=== PATIENT | female | born 1975 | race Caucasian/White ===

== ENCOUNTER 2020-06-21 10:06 | Outpatient (CLI) | payer BC, SELFPAY ==
--- NOTE | 2020-06-21 10:14 | MM_ITS ---
WS: [id number] BILATERAL DIGITAL SCREENING MAMMOGRAPHY WITH CAD CLINICAL INFORMATION: SCREENING HISTORY: Screening mammogram. No current complaints. COMPARISON: 2015 TECHNIQUE: Bilateral CC and MLO views. FINDINGS: History of breast reduction. The breasts are composed of heterogeneous fibroglandular density tissue, which can limit the detectio n of small underlying mass lesions. 13 mm asymmetric density upper outer left breast best seen on the MLO view. Recommend spot compression views and ultrasound if persistent. Right breast is unremarkable and unchanged. Stable intramammary lymph nodes both axillary tails. A fe w eggshell calcifications. MM/[place] [id number] IMPRESSION: BI-RADS: 0-Incomplete: Need additional imaging evaluation FOLLOW UP: Need Additional Imaging RECOMMEND LEFT DIAGNOSTIC MAMMOGRAPHY AND ULTRASOUND IF PERSISTENT
== END 2020-06-21 10:07 | disposition home or self-care (01) ==
LOC: RADSHAW 10:09
PROVIDERS: PCP Nurse Practitioner Family; Visit Provider Nurse Practitioner Family
DX: Z12.31 Encounter for screening mammogram for malignant neoplasm of breast (principal); N64.89 Other specified disorders of breast
CPT/HCPCS: 77067

== ENCOUNTER 2020-06-30 08:11 | Outpatient (CLI) | payer BC, SELFPAY ==
--- NOTE | 2020-06-30 08:16 | US_ITS ---
WS: [id number] LEFT DIGITAL MAMMOGRAPHY WITH CAD CLINICAL INFORMATION: ABNORMAL MAMMOGRAM COMPARISON: None. TECHNIQUE: views of the left breast were obtained. FINDINGS: The left breast is composed of heterogeneous fibroglandular density tissue, which can limit the detec tion of small underlying mass lesions. 13 mm asymmetric density upper outer left breast appears uncha nged. Ultrasound is pending. ULTRASOUND BREAST LEFT TECHNIQUE: Ultrasound left breast focused area of concern. CLINICAL INFORMATION: ABNORMAL MAMMOGRAM COMPARISON: None. FINDINGS: Ultrasound left breast 12 to 3:00 position. Echogenic dense parenchymal tissue in the upper-outer javi drant. No cystic or solid lesions. No lesions to target for biopsy. US/US breast LT limited* [id number] IMPRESSION: BI-RADS: 2-Benign FOLLOW UP: 1 Year Follow-up Recommend return to annual screening mammography.
== END 2020-06-30 08:12 | disposition home or self-care (01) ==
LOC: RADSHAW 08:14
PROVIDERS: PCP Nurse Practitioner Family; Visit Provider Nurse Practitioner Family
DX: R92.8 Other abnormal and inconclusive findings on diagnostic imaging of breast (principal)
CPT/HCPCS: 76642; 77065

== ENCOUNTER 2020-10-31 13:02 | Outpatient (RCR) | payer OTHER, SELFPAY | END 2020-11-23 23:59 | disposition home or self-care (01) | LOC: SOT 13:02 | PROVIDERS: PCP Nurse Practitioner Family; Visit Provider Orthopaedic Surgery Hand Surgery | DX: Z98.890 Other specified postprocedural states (principal); M65.311 Trigger thumb, right thumb | CPT/HCPCS: 97035; 97110; 97165 ==

== ENCOUNTER 2020-11-24 06:00 | Outpatient (RCR) | payer OTHER, SELFPAY | END 2020-12-23 23:59 | disposition home or self-care (01) | LOC: SOT 06:00 | PROVIDERS: PCP Nurse Practitioner Family; Visit Provider Orthopaedic Surgery Hand Surgery | DX: Z47.89 Encounter for other orthopedic aftercare (principal); Z98.890 Other specified postprocedural states; M65.311 Trigger thumb, right thumb | CPT/HCPCS: 97035; 97110; 97140; 97530 ==

== ENCOUNTER 2020-12-24 06:00 | Outpatient (RCR) | payer OTHER, SELFPAY | END 2021-01-23 23:59 | disposition home or self-care (01) | LOC: SOT 06:00 | PROVIDERS: PCP Nurse Practitioner Family; Visit Provider Orthopaedic Surgery Hand Surgery | DX: Z98.890 Other specified postprocedural states (principal); M65.311 Trigger thumb, right thumb | CPT/HCPCS: 97035; 97110; 97140; 97530 ==

== ENCOUNTER 2021-06-27 13:24 | Outpatient (CLI) | payer OTHER, SELFPAY ==
--- NOTE | 2021-06-27 13:29 | MR_ITS ---
WS: [id number] MRI CERVICAL SPINE NONCONTRAST TECHNIQUE: Sagittal T1, T2 and STIR imaging. Axial T2, gradient, and fiesta imaging. CLINICAL INFORMATION: NECK PAIN COMPARISON: None. FINDINGS: Straightening of the normal cervical lordosis. No high-grade central canal narrowing. Cord signal is normal. Degenerative edema in the right C5-C6 vertebral bodies. C2-C3: Mild disc bulging with osteophytic ridging. Spinal canal and foramen are patent. Mild facet ar thropathy. C3-C4: Left pericentral disc osteophyte protrusion with slight effacement of ventral thecal sac. Spin al canal is patent. Foramen are patent. C4-C5: Disc osteophyte protrusion eccentric to the left with slight contact of the left ventral cervi kristopher cord. Mild central canal stenosis. Mild left foraminal narrowing. Right foramen is patent. Mild f acet arthropathy. C5-C6: Mild disc osteophyte complex with endplate ridging. Mild central canal stenosis. Tiny shallow central protrusion. Moderate right and no significant left foraminal narrowing. Mild facet arthropath y. C6-C7: Disc osteophyte complex with endplate ridging. Mild to moderate right and no significant left foraminal narrowing. Spinal canal is patent. C7-T1: No significant disc bulging. Osteophytic ridging. Mild left bony foraminal narrowing. Right fo ramen is patent. Visualized brain stem structures: Normal. Prevertebral soft tissues: Normal. MR/MR cervical spin wo con* [id number] IMPRESSION: 1. Mild cervical curve with straightening of the normal cervical lordosis. 2. No high-grade central canal narrowing. Cord signal is normal. 3. Small disc osteophyte protrusions C4-C5 and C5-C6 with mild central canal s tenosis. 4. Mild/moderate right C5-C6 and right C6-C7 bony foraminal narrowing.
== END 2021-06-27 13:25 | disposition home or self-care (01) ==
LOC: RADSHAW 13:28
PROVIDERS: PCP Nurse Practitioner Family; Visit Provider Nurse Practitioner Family
DX: M54.2 Cervicalgia (principal); M25.78 Osteophyte, vertebrae; M48.02 Spinal stenosis, cervical region
CPT/HCPCS: 72141

== ENCOUNTER → 2021-07-06 14:07 | Outpatient (BNVA) | payer OTHER, SELFPAY | PROVIDERS: PCP Nurse Practitioner Family; Visit Provider Nurse Practitioner Women's Health | DX: R10.2 Pelvic and perineal pain (principal); R10.9 Unspecified abdominal pain | CPT/HCPCS: 84702; 85025; 87086 ==

== ENCOUNTER → 2021-07-10 12:59 | Outpatient (BNVA) | payer OTHER, SELFPAY | PROVIDERS: PCP Nurse Practitioner Family; Visit Provider Nurse Practitioner Women's Health | DX: R10.2 Pelvic and perineal pain (principal) | CPT/HCPCS: 76830 ==

== ENCOUNTER 2022-08-10 09:27 | Outpatient (CLI) | payer OTHER, SELFPAY ==
--- NOTE | 2022-08-10 09:34 | MM_ITS ---
WS: [id number] BILATERAL 3D TOMOSYNTHESIS DIGITAL DIAGNOSTIC MAMMOGRAPHY WITH CAD CLINICAL INFORMATION: BREAST PAIN HISTORY: LEFT breast pain. History of breast reduction. COMPARISON: 2019 TECHNIQUE: Bilateral CC, MLO, and ML views. FINDINGS: Scattered fibroglandular densities bilaterally. [place]ent centered calcification RIGHT breast. No suspic ious mammographic parenchymal abnormalities in the area of interest LEFT breast. Ultrasound described below. RIGHT breast appears unchanged ULTRASOUND BREAST LEFT TECHNIQUE: Ultrasound left breast focused area of concern. CLINICAL INFORMATION: BREAST PAIN COMPARISON: None. FINDINGS: Ultrasound LEFT breast 9:00 area of interest. Normal underlying parenchymal tissue. No suspicious cys tic or solid lesions. No lesions to target for biopsy. Recommend return to annual screening mammograp hy. MM/[place] [id number] IMPRESSION: BI-RADS: 2-Benign FOLLOW UP: 1 Year Follow-up Recommend return to annual screening mammography.
== END 2022-08-10 09:28 | disposition home or self-care (01) ==
PROVIDERS: PCP Nurse Practitioner Family; Visit Provider Nurse Practitioner Family
DX: N64.4 Mastodynia (principal)
CPT/HCPCS: 76642; 77062; G0279

== ENCOUNTER 2023-06-09 14:16 | Day surgery (SDC) | payer BC, SELFPAY ==
[2023-06-09] VITALS (10 sets, daily range): BP systolic 96–160; BP diastolic 62–104; PULSE 64–89; RESP 16–18; TEMP 36.1–36.8; O2SAT 93–100; BMI 30.2
--- NOTE | 2023-06-09 14:58 | CTR_ITS ---
PROCEDURE INFORMATION: Exam: CT Abdomen And Pelvis With Contrast Exam date and time: 06/09/2023 3:59 PM Age: 48 years old Clinical indication: Abdominal pain; Localized; Right lower quadrant (rlq); Prior surgery; Surgery date: 6+ months; Surgery type: Tubal; Additional info: Rlq pain TECHNIQUE: Imaging protocol: Computed tomography of the abdomen and pelvis with contrast. Radiation optimization: All CT scans at this facility use at least one of these dose optimization techniques: automated exposure control; mA and/or kV adjustment per patient size (includes targeted exams where dose is matched to clinical indication); or iterative reconstruction. Contrast material: OMNI 350; Contrast volume: 100 ml; Contrast route: INTRAVENOUS (IV); REPORTING DATA: Count of CT and Cardiac NM exams in prior 12 months: This patient has received 0 known CTs and 0 known cardiac nuclear medicine studies in the 12 months prior to the current study. COMPARISON: US transvaginal [id number] 07/10/2021 1:07 PM RADIATION DOSE METRICS: Total DLP (mGy-cm): 587.57 FINDINGS: Liver: Normal without focal lesions. Gallbladder and bile ducts: Normal. No calcified stones. No ductal dilation. Pancreas: Normal without ductal dilatation. Spleen: Normal. Adrenal glands: Normal. No mass. Kidneys and ureters: Subcentimeter right renal hypodensity too small to characterize statistically likely benign and requires no dedicated imaging follow-up. Otherwise unremarkable. Stomach and bowel: Unremarkable. No obstruction. No mucosal thickening. Appendix: The appendix is dilated with wall thickening and mucosal hyperenhancement, measuring up to 1.2 cm in diameter, and shows periappendiceal fat stranding. Intraperitoneal space: Minimal free pelvic fluid. No free air or well organized fluid collection. Vasculature: Unremarkable. No abdominal aortic aneurysm. Lymph nodes: No enlarged lymph nodes. Urinary bladder: Urinary bladder is unremarkable. Reproductive: Bilateral tubal occlusion devices. Suspect uterine fibroid. Otherwise unremarkable as visualized. Bones/joints: No acute fracture. Mild degenerative changes along the spine. Soft tissues: Unremarkable. CT/CT abdomen pelvis w con* [id number] IMPRESSION: Acute uncomplicated appendicitis.
[2023-06-09 15:16] LABS: Basophils % 0.2 %; Hematocrit 42.7 % (36-47); Lymphocytes # 1.7 10^3/uL (0.8-4.8); Mean Corpuscular Hemoglobin 29.5 pg (27-33); Mean Corpuscular Volume 89.3 fl (85-98); Mean Platelet Volume 9.6 fL (7.4-10.4); Monocytes # 0.6 10^3/uL (0.2-0.9); Neutrophils # 16.24 10^3/uL (1.8-7.7); Neutrophils % 87.4 %; Nucleated Red Blood Cells % 0 %; Platelet Count 337 10^3/cmm (157-399); Red Blood Count 4.78 10^6/uL (3.85-5.65); Red Cell Distribution Width 12.8 % (12.1-15.1); White Blood Count 18.58 10^3/uL (3.29-11.43)
[2023-06-09 15:36] LABS: Alanine Aminotransferase 14 U/L (0-33); Alkaline Phosphatase 101 U/L (35-105); Anion Gap 12.9 (5-19); Aspartate Amino Transferase 13 U/L (0-32); Blood Urea Nitrogen 13 mg/dL (6-20); Calcium 9.1 mg/dL (8.5-10.5); Carbon Dioxide 23 mmol/L (22-29); Chloride 100 mmol/L (98-107); Creatinine Clr Calc Pharmacy 80.5692; Globulin 3.3 g/dL (1.3-4.6); Glomerular Filtration Rate 76.2 mL/min (90-130); Glucose 113 mg/dL (65-115); Lipase 29 U/L (13-60); Osmolality Calculated 275 mOsm/kg (285-295); Potassium 3.9 mmol/L (3.5-5.1); Sodium 132 mmol/L (136-145); Total Bilirubin 0.6 mg/dL (0.15-1.2); Total Protein 7.3 g/dL (6.6-8.7)
[2023-06-09] MEDS: ondansetron 2 mg/ML SDV 2 mL 4 MG IVP (15:41)
[2023-06-09] MEDS: morphine 4 mg/mL SDV 1 mL 2 MG IVP (15:43)
--- NOTE | 2023-06-09 15:55 | W.ED.ABDPA2 ---
HPI - Abdominal Pain General: Chief Complaint: Abdominal Pain Stated Complaint: lower right abd pain Time Seen by Provider: 06/09/23 14:52 History of Present Illness: 48-year-old female presents emergency room with right lower quadrant abdominal pain since last night. Patient reveals increased pain and prior comes emergency room and described the pain as sharp sensation with severity of 7 out of 10. Patient with some nausea but no vomiting. No diarrhea, dysuria, hematuria urine frequency. No flank pain, no recent fall or injury. No vaginal bleeding or vaginal discharge Associated Symptoms: Reports nausea; Denies bloating, change in bowel habits, chills, constipation, dysuria, excessive flatus, fever(s), heartburn, hematemesis and vomiting Review of Systems General: Reports: 10 or more systems reviewed and unremarkable except in HPI and below Const: Denies: fever(s), chills, body aches, change in appetite, change in weight, fatigue or malaise Card: Denies: chest pain, palpitations, irregular heart rhythm, edema, swelling of feet/ankles or lightheadedness Resp: Denies: dyspnea, productive cough, non-productive cough or wheezing GI: Reports: abdominal pain and nausea; Denies: vomiting, hematemesis, dysphagia, heartburn, constipation, bloating, excessive flatus or change in bowel habits : Denies: flank pain, difficulty voiding, dysuria, urinary frequency, urinary urgency, urinary hesitancy, dribbling or nocturia Musc: Denies: neck pain, back pain, extremity pain, extremity swelling or joint pain Neuro: Denies: headache(s), numbness in extremities or weakness in extremities PFSH ED PFSH: Medical History Anxiety Hypertension Pure hypercholesterolemia, unspecified Surgical History H/O abdominoplasty (~09/2010) H/O breast augmentation (~09/2010) History of hysteroscopy (~12/2011) D&C, Endometrial ablation with ESSURE; suburethral sling placed at this time Family History Grandfather Cancer Maternal grandfather-colon cancer Grandmother Cancer Maternal great grandmother-breast cancer Other Hypertension Denies family history of Diabetes Hyperlipidemia Stroke Social History Smoking and tobacco/nicotine status: never used tobacco/nicotine Alcohol intake: current Alcohol intake frequency: holidays/special occasions only Substance/Drug Use: never Physical Exam Const: COMMON NORMALS: no acute distress, average body habitus, patient oriented x3, no limitations, healthy appearing, alert and well nourished HENMT: COMMON NORMALS: normocephalic, atraumatic, hearing grossly normal bilaterally, external ears normal, EAC's normal, TM's normal bilaterally, Normal external nose present, Normal nasal mucous membranes and turbinates present, moist oral mucous membranes, oropharynx normal, dentition normal and gingiva normal HEAD & SCALP: normocephalic and atraumatic NOSE: Normal external nose present and Normal nasal mucous membranes and turbinates present EXTERNAL EAR: Yes external ears normal EXTERNAL AUDITORY CANAL: EAC's normal TYMPANIC MEMBRANE: TM's normal bilaterally Neck/C-Spine: COMMON NORMALS: no JVD Chest: COMMONS NORMALS: normal inspection of the chest, normal palpation of entire chest wall, normal inspection of the breasts and normal palpation of the breasts Breast/axilla inspection: Yes normal inspection of the breasts BREAST/AXILLA PALPATION: Yes normal palpation of the breasts Resp: COMMON NORMALS: normal respiratory effort, No retractions, No use of accessory muscles, clear to auscultation bilaterally and percussion normal AUSCULTATION: clear to auscultation bilaterally PERCUSSION: percussion normal Cardio: COMMON NORMALS: no JVD, regular rate, regular rhythm, S1 normal heart sound present, S2 normal heart sound present, No gallops present (Cardio), No clicks present (Cardio), No murmurs present (Cardio), No rub (Cardio) and Peripheral pulses 2+ throughout RATE: regular rate RHYTHM: regular rhythm HEART SOUNDS: S1 normal heart sound present and S2 normal heart sound present PERIPHERAL PULSES: Peripheral pulses 2+ throughout GI: COMMON NORMALS: Normal to inspection, nondistended, normoactive bowel sounds present, Soft to palpation, No hepatosplenomegaly present, no masses and no bruits INSPECTION: Yes normal to inspection AUSCULTATION: Yes normoactive bowel sounds PALPATION: Yes Soft to palpation, Yes Tenderness to palpation present (GI) Details: RLQ and Yes No hepatosplenomegaly present : COMMON NORMALS: Yes no CVA tenderness BLADDER/KIDNEY EXAM: Yes no CVA tenderness Back/Pelvis: COMMON NORMALS: no CVA tenderness, thoracic and lumbar spine normal to inspection, no thoracic nor lumbar tenderness, thoraco-lumbar ROM normal and straight leg raise negative bilaterally Extremity: COMMON NORMALS: normal to inspection, full ROM, capillary refill normal, no joint enlargement, no clubbing, cyanosis or edema, no calf tenderness and no pedal edema Neuro: COMMON NORMALS: patient oriented x3 SENSORIUM/ORIENTATION: Yes alert Course Reevaluation(s): Reevaluation #1: I discussed patient with Dr. Che Vital Signs: Vital signs: Vital Signs Temperature 97 F L 06/09/23 18:50 Pulse Rate 64 06/09/23 19:30 Respiratory Rate 18 06/09/23 19:30 Blood Pressure 112/64 06/09/23 19:30 Pulse Oximetry 96 06/09/23 19:30 Oxygen Delivery Me thod Room Air 06/09/23 19:30 Oxygen Flow Rate 6 06/09/23 18:55 MDM - Abdominal Pain Medical Decision Making Patient made comfortable emergency room patient and extensive work-up to include CBC, CMP, CT scan. Patient was found to have acute appendicitis. Patient was given IV antibiotics. I discussed patient with Dr. De Anda. Patient admitted for further evaluation and treatment Differential Diagnosis Likely abdominal pain, acute appendicitis, calculus of kidney, constipation, diverticulitis, endometriosis, gastroenteritis, pancreatitis and small bowel obstruction Lab Data 06/09/23 15:10 06/09/23 15:10 Labs/Radiology: Radiology Impressions Abdomen/Pelvis CT 06/09/23 14:58 IMPRESSION: Acute uncomplicated appendicitis. ADDENDUM: 06/09/23 0903 THIS REPORT CONTAINS FINDINGS THAT MAY BE CRITICAL TO PATIENT CARE. The findings were verbally communicated via telephone conference with SUMIT MELGAR at 4:23 PM CDT on 06/09/2023. The findings were acknowledged and understood. Laboratory Results WBC 18.58 10^3/uL (3.29-11.43) H 06/09/23 15:10 RBC 4.78 10^6/uL (3.85-5.65) 06/09/23 15:10 Hgb 14.10 g/dL (11.27-16.99) 06/09/23 15:10 Hct 42.7 % (36-47) 06/09/23 15:10 MCV 89.3 fl (85-98) 06/09/23 15:10 MCH 29.5 pg (27-33) 06/09/23 15:10 MCHC 33.0 g/dL (30-55) 06/09/23 15:10 RDW 12.8 % (12.1-15.1) 06/09/23 15:10 Plt Count 337 10^3/cmm (157-399) 06/09/23 15:10 MPV 9.6 fL (7.4-10.4) 06/09/23 15:10 Neut % (Auto) 87.4 % 06/09/23 15:10 Lymph % (Auto) 9.0 % 06/09/23 15:10 [place] % (Auto) 3.0 % 06/09/23 15:10 Eos % (Auto) 0.0 % 06/09/23 15:10 Baso % (Auto) 0.2 % 06/09/23 15:10 Neut # (Auto) 16.24 10^3/uL (1.8-7.7) H 06/09/23 15:10 Lymph # (Auto) 1.7 10^3/uL (0.8-4.8) 06/09/23 15:10 [place] # (Auto) 0.6 10^3/uL (0.2-0.9) 06/09/23 15:10 Eos # (Auto) 0.0 10^3/uL (0.0-0.8) 06/09/23 15:10 Baso # (Auto) 0.0 10^3/uL (0.0-0.1) 06/09/23 15:10 Nucleated RBC % (auto) 0 % 06/09/23 15:10 Nucleated RBCs # 0.0 /100WBC 06/09/23 15:10 Sodium 132 mmol/L (136-145) L 06/09/23 15:10 Potassium 3.9 mmol/L (3.5-5.1) 06/09/23 15:10 Chloride 100 mmol/L (98-107) 06/09/23 15:10 Carbon Dioxide 23 mmol/L (22-29) 06/09/23 15:10 Anion Gap 12.9 (5-19) 06/09/23 15:10 BUN 13 mg/dL (6-20) 06/09/23 15:10 Creatinine 0.8 mg/dL (0.5-0.9) 06/09/23 15:10 GFR Calculation 76.2 mL/min (90-130) L 06/09/23 15:10 Glucose 113 mg/dL (65-115) 06/09/23 15:10 Calculated Osmolality 275 mOsm/kg (285-295) L 06/09/23 15:10 Calcium 9.1 mg/dL (8.5-10.5) 06/09/23 15:10 Total Bilirubin 0.6 mg/dL (0.15-1.2) 06/09/23 15:10 AST 13 U/L (0-32) 06/09/23 15:10 ALT 14 U/L (0-33) 06/09/23 15:10 Alkaline Phosphatase 101 U/L (35-105) 06/09/23 15:10 Total Protein 7.3 g/dL (6.6-8.7) 06/09/23 15:10 Albumin 4.0 g/dL (3.5-5.2) 06/09/23 15:10 Globulin 3.3 g/dL (1.3-4.6) 06/09/23 15:10 Lipase 29 U/L (13-60) 06/09/23 15:10 HCG, Qual Negative (Negative) 06/09/23 16:09 Urine Color Straw (Yellow) 06/09/23 16:09 Urine Appearance Clear (CLEAR) 06/09/23 16:09 Urine pH 6.5 (5-7) 06/09/23 16:09 Ur Specific [place] 1.000 (1.005-1.030) L 06/09/23 16:09 Urine Protein Neg (Negative) 06/09/23 16:09 Urine Glucose (UA) Norm (Normal) 06/09/23 16:09 Urine Ketones Negative (Negative) 06/09/23 16:09 Urine Blood Neg (Negative) 06/09/23 16:09 Urine Nitrate Negative (Negative) 06/09/23 16:09 Urine Bilirubin Neg (Negative) 06/09/23 16:09 Urine Urobilinogen Norm mg/dL (Negative) 06/09/23 16:09 Ur Leukocyte Esterase Negative (Negative) 06/09/23 16:09 XR interpretation done by ED provider, pending radiology final review Discharge Plan Discharge Patient Disposition: Admitted As Inpatient Clinical Impression: Abdominal pain, Appendicitis, Leukocytosis Condition: Stable Coding Level of Care Code ED Multifold Operator for Skyler Jamil
[2023-06-09] MEDS: iohexol 350 mg/mL 500 mL Btl (per mL) IV (16:04)
[2023-06-09 17:01] LABS: Add Urine Microscopic? NO; Charge for UA Resulting for Rev
[2023-06-09 17:05] LABS: Urine Appearance Clear (CLEAR); Urine Color Straw (Yellow)
[2023-06-09 17:06] LABS: Bilirubin Urine Neg (Negative); Blood Urine Neg (Negative); Glucose Urine UA Norm (Normal); Ketones Urine Negative (Negative); Leukocyte Esterase Urine Negative (Negative); Nitrate Urine Negative (Negative); Protein Urine Neg (Negative); Urobilinogen Urine Norm (Negative); pH Urine 6.5 (5-7)
[2023-06-09 17:08] LABS: HCG Qualitative Urine. Negative (Negative)
[2023-06-09] MEDS: piperacillin-tazobactam 4.5 GM in sodium chloride 0.9% (plus) 50 ML IV (17:24)
--- NOTE | 2023-06-09 17:24 | PM.HP ---
Providers/Chief Complaint Primary Care Provider: RYAN Herron Chief Complaint: lower right abd pain History of Present Illness Lina Landon is a 48 year old female who presented to the hospital with 1 day history of right lower quadrant abdominal pain. The pain is sharp and constant and radiates across her abdomen. Palpation makes the pain worse. Nothing seems to make the pain better. She does not endorse nausea but denies any emesis. Denies any diarrhea, constipation, hematochezia and/or melena. She has a history of abdominoplasty. CT abdomen pelvis shows acute uncomplicated appendicitis. Review of Systems General: Reports: 10 or more systems reviewed and unremarkable except in HPI and below Medications/Allergies Home Medications Medication Instructions Recorded Confirmed Last Taken Type amlodipine 10 mg tablet 10 mg PO DAILY 06/03/20 06/09/23 06/08/23 History hydrochlorothiazide 25 mg tablet 12.5 mg PO DAILY 06/03/20 06/09/23 06/08/23 History Allergies Allergy/AdvReac Type Severity Reaction Status Date / Time No Known Allergies Allergy Verified 07/14/21 08:18 PFSH Acute PFSH: Medical History Anxiety Hypertension Pure hypercholesterolemia, unspecified Surgical History H/O abdominoplasty (~09/2010) H/O breast augmentation (~09/2010) History of hysteroscopy (~12/2011) D&C, Endometrial ablation with ESSURE; suburethral sling placed at this time Family History Grandfather Cancer Maternal grandfather-colon cancer Grandmother Cancer Maternal great grandmother-breast cancer Other Hypertension Denies family history of Diabetes Hyperlipidemia Stroke Social History Smoking and tobacco/nicotine status: never used tobacco/nicotine Alcohol intake: current Alcohol intake frequency: holidays/special occasions only Substance/Drug Use: never Vitals/I&O/Wt Last Vital Signs Temp 98.2 F 06/09/23 14:24 Pulse 77 06/09/23 14:24 Resp 16 06/09/23 15:43 BP 126/81 06/09/23 14:24 Pulse Ox 98 06/09/23 14:24 O2 Del Method Room Air 06/09/23 14:24 Weight last 48 hrs Weight 165 lb Physical Exam Narrative: General : Patient is well developed , no acute distress, oriented x3 Head : Normal cephalic, a-traumatic. Ears : Pinnae and external canal are normal. Hearing is normal. Eyes : PERRLA, Sclera and injection are normal. No conjunctival discharge. Nose : Mucous membranes are without erythema. Throat : buccal mucosa is normal, gums are without significant recession or hypertrophy. Lungs : Equal chest rise bilaterally, no use of accessory muscles, trachea is midline. Cor : Rate and rhythm are normal. Abdomen : Soft, ND, tender to palpation right lower quadrant, positive Rovsing's Extremities : No edema, no cyanosis or clubbing, dorsalis pedis pulses are present bilaterally, non-tender to palpation of calves. Upper extremities are normal bilaterally. Back : non-tender to palpation, no CVA tenderness. Neuro : CN II - XII intact, Upper and lower extremities have equal and full strength Data 06/09/23 15:10 06/09/23 15:10 A&P Assessment and plan (1) Acute appendicitis: Plan Laparoscopic Appendectomy The risks and benefits of the procedure, including but not limited to, bleeding, infection, scar, numbness, pain, damage to surrounding structures, conversion to an open procedure, were explained to the patient. He is understanding of the risks and wishes to proceed. Attestations Medical Necessity Statement*: Patient may be discharged home after the procedure or admitted depending on the intraoperative findings Coding Level of Care Code 87220 Diagnoses Acute appendicitis K35.80
--- NOTE | 2023-06-09 17:38 | P.ANESASSM_ITS ---
Pre-Anesthetic Assessment Height/Weight: Height 1.57 m Weight 74.843 kg Temp Pulse Resp BP Pulse Ox O2 Del Method 98.2 F 77 16 126/81 98 Room Air 06/09/23 14:24 06/09/23 14:24 06/09/23 15:43 06/09/23 14:24 06/09/23 14:24 06/09/23 14:24 Operation Date: 06/09/23 17:20 Proposed Procedures p Laparoscopic Appendectomy(Right) - Karsten Che DO Familial anesthetic complications: none Was Beta Ramirez taken within 24 hours: N/A Was Clonidine taken within 24 hours: N/A Social No alcohol and No tobacco Exam alert, oriented x 3, clear to auscultation bilaterally and regular rate & rhythm Airway Submandibular: within normal limits Cervical ROM: within normal limits Mallampati: Class II Dentition: full CV/HEM Hypertension Neuropsych Anxiety Anesthetic Plan ASA status: 2E Anesthesia: General Medications/Allergies Home Medications Medication Instructions Recorded Confirmed Last Taken Type amlodipine 10 mg tablet 10 mg PO DAILY 06/03/20 06/09/23 06/08/23 History hydrochlorothiazide 25 mg tablet 12.5 mg PO DAILY 06/03/20 06/09/23 06/08/23 History Allergies Allergy/AdvReac Type Severity Reaction Status Date / Time No Known Allergies Allergy Verified 07/14/21 08:18 [facility] Anesthesia Medical History Anxiety Hypertension Pure hypercholesterolemia, unspecified Surgical History H/O abdominoplasty (~09/2010) H/O breast augmentation (~09/2010) History of hysteroscopy (~12/2011) D&C, Endometrial ablation with ESSURE; suburethral sling placed at this time Family History Grandfather Cancer Maternal grandfather-colon cancer Grandmother Cancer Maternal great grandmother-breast cancer Other Hypertension Denies family history of Diabetes Hyperlipidemia Stroke Social History Smoking and tobacco/nicotine status: never used tobacco/nicotine Alcohol intake: current Alcohol intake frequency: holidays/special occasions only Substance/Drug Use: never Data Anesthesia 06/09/23 15:10 06/09/23 15:10 Short CBC 06/09/23 Range/Units 15:10 WBC 18.58 H (3.29-11.43) 10^3/uL Hgb 14.10 (11.27-16.99) g/dL Hct 42.7 (36-47) % MCV 89.3 (85-98) fl Plt Count 337 (157-399) 10^3/cmm Neut % (Auto) 87.4 % Neut # (Auto) 16.24 H (1.8-7.7) 10^3/uL BMP 06/09/23 15:10 Sodium 132 L Potassium 3.9 Chloride 100 Carbon Dioxide 23 BUN 13 Creatinine 0.8 Glucose 113 Calcium 9.1 Liver Function 06/09/23 Range/Units 15:10 Total Bilirubin 0.6 (0.15-1.2) mg/dL AST 13 (0-32) U/L ALT 14 (0-33) U/L Alkaline Phosphatase 101 (35-105) U/L Albumin 4.0 (3.5-5.2) g/dL Urine 06/09/23 Range/Units 16:09 Urine Color Straw (Yellow) Urine Appearance Clear (CLEAR) Urine pH 6.5 (5-7) Ur Specific [place] 1.000 L (1.005-1.030) Urine Protein Neg (Negative) Urine Glucose (UA) Norm (Normal) Urine Ketones Negative (Negative) Urine Nitrate Negative (Negative) Urine Bilirubin Neg (Negative) Ur Leukocyte Esterase Negative (Negative) Cardiac Studies: No Data to Display
[2023-06-09] MEDS: lidocaine-epi 2% 20 mL INJ (18:10)
--- NOTE | 2023-06-09 18:29 | P.OP_ITS ---
Operative Report Date of procedure: June 09, 2023 Pre-op diagnosis: Acute appendicitis Post-op diagnosis: same Procedure done: Laparoscopic appendectomy Implants: none Specimens removed/disposition: Appendix Surgeon: Karsten Che DO Anesthesia: General Estimated blood loss (mL): 5 Complications: none apparent Brief History: This very pleasant 58-year-old female who presented to the hospital with abdominal pain. She is diagnosed with acute appendicitis. Laparoscopic appendectomy was indicated. The risk and benefits were explained and documented. Procedure: Patient was wheeled into the operative room and placed on the OR table in a supine position. Abdomen was inspected prepped and draped in usual sterile fashion. Time-out was performed and all present were in agreement. A 15 blade scalp was used to make a stab incision in the left upper quadrant and intra- abdominal insufflation was achieved using a Veress needle. After localizing the tissue incisions were made and a 12 millimeter trocar was placed into the umbilicus as well as a 5mm in the right lower quadrant and a 5 mm in the left lower quadrant . The appendix was identified and was mildly inflamed. I used the Voyant to ligate the mesoappendix at the base. I then used 2 PDS endo-loops to snare the base of the appendix. I then used the Voyant to ligate the appendix distally. The appendix was removed from the abdomen using an Endo- Catch bag through the umbilical incision. I examined the abdomen and no further pathology was identified. Hemostasis was noted. I then closed the umbilical site with a Bandar-Bora and 0 Vicryl suture in a figure of 8 fashion. All ports removed. Skin was washed and dried. Incisions were closed with 4 O Vicryl in a subcuticular interrupted fashion. Skin glue was applied. Patient tolerated the procedure well.
--- NOTE | 2023-06-09 18:31 | P.DS_ITS ---
Discharge Providers Date of Discharge: June 09, 2023 Attending Provider at Discharge: Karsten Che DO Primary Care Provider: RYAN Herron Diagnoses at Discharge Discharge Diagnosis (1) Acute appendicitis: Status: Acute Reason for Visit Reason for Visit: lower right abd pain Hospital Course Hospital Course This very pleasant 48-year-old female who presented to the hospital with abdominal pain. She was diagnosed with acute appendicitis and underwent laparoscopic appendectomy. She did well postoperatively was discharged home in good condition with antibiotics and pain control. Physical Exam Narrative: General : Patient is well developed , no acute distress, oriented x3 Head : Normal cephalic, a-traumatic. Ears : Pinnae and external canal are normal. Hearing is normal. Eyes : PERRLA, Sclera and injection are normal. No conjunctival discharge. Nose : Mucous membranes are without erythema. Throat : buccal mucosa is normal, gums are without significant recession or hypertrophy. Lungs : Equal chest rise bilaterally, no use of accessory muscles, trachea is midline. Cor : Rate and rhythm are normal. Abdomen : Soft, ND, appropriately tender no g/r/m Extremities : No edema, no cyanosis or clubbing, dorsalis pedis pulses are present bilaterally, non-tender to palpation of calves. Upper extremities are normal bilaterally. Back : non-tender to palpation, no CVA tenderness. Neuro : CN II - XII intact, Upper and lower extremities have equal and full strength Discharge Data Studies Completed and Pending Completed Studies During Hospitalization Category Date Time Status CT abdomen pelvis w con* [id number] Stat Cat Scan 06/09/23 14:58 Completed Pending at discharge Category Date Time Status Pathology: Surgical [PTH] Routine Pth 06/09/23 18:23 Ordered Radiology Impressions Abdomen/Pelvis CT 06/09/23 14:58 IMPRESSION: Acute uncomplicated appendicitis. ADDENDUM: 06/09/23 [id number] THIS REPORT CONTAINS FINDINGS THAT MAY BE CRITICAL TO PATIENT CARE. The findings were verbally communicated via telephone conference with SUMIT MELGAR at 4:23 PM CDT on 06/09/2023. The findings were acknowledged and understood. Laboratory Results WBC 18.58 10^3/uL (3.29-11.43) H 06/09/23 15:10 RBC 4.78 10^6/uL (3.85-5.65) 06/09/23 15:10 Hgb 14.10 g/dL (11.27-16.99) 06/09/23 15:10 Hct 42.7 % (36-47) 06/09/23 15:10 MCV 89.3 fl (85-98) 06/09/23 15:10 MCH 29.5 pg (27-33) 06/09/23 15:10 MCHC 33.0 g/dL (30-55) 06/09/23 15:10 RDW 12.8 % (12.1-15.1) 06/09/23 15:10 Plt Count 337 10^3/cmm (157-399) 06/09/23 15:10 MPV 9.6 fL (7.4-10.4) 06/09/23 15:10 Neut % (Auto) 87.4 % 06/09/23 15:10 Lymph % (Auto) 9.0 % 06/09/23 15:10 [place] % (Auto) 3.0 % 06/09/23 15:10 Eos % (Auto) 0.0 % 06/09/23 15:10 Baso % (Auto) 0.2 % 06/09/23 15:10 Neut # (Auto) 16.24 10^3/uL (1.8-7.7) H 06/09/23 15:10 Lymph # (Auto) 1.7 10^3/uL (0.8-4.8) 06/09/23 15:10 [place] # (Auto) 0.6 10^3/uL (0.2-0.9) 06/09/23 15:10 Eos # (Auto) 0.0 10^3/uL (0.0-0.8) 06/09/23 15:10 Baso # (Auto) 0.0 10^3/uL (0.0-0.1) 06/09/23 15:10 Nucleated RBC % (auto) 0 % 06/09/23 15:10 Nucleated RBCs # 0.0 /100WBC 06/09/23 15:10 Sodium 132 mmol/L (136-145) L 06/09/23 15:10 Potassium 3.9 mmol/L (3.5-5.1) 06/09/23 15:10 Chloride 100 mmol/L (98-107) 06/09/23 15:10 Carbon Dioxide 23 mmol/L (22-29) 06/09/23 15:10 Anion Gap 12.9 (5-19) 06/09/23 15:10 BUN 13 mg/dL (6-20) 06/09/23 15:10 Creatinine 0.8 mg/dL (0.5-0.9) 06/09/23 15:10 GFR Calculation 76.2 mL/min (90-130) L 06/09/23 15:10 Glucose 113 mg/dL (65-115) 06/09/23 15:10 Calculated Osmolality 275 mOsm/kg (285-295) L 06/09/23 15:10 Calcium 9.1 mg/dL (8.5-10.5) 06/09/23 15:10 Total Bilirubin 0.6 mg/dL (0.15-1.2) 06/09/23 15:10 AST 13 U/L (0-32) 06/09/23 15:10 ALT 14 U/L (0-33) 06/09/23 15:10 Alkaline Phosphatase 101 U/L (35-105) 06/09/23 15:10 Total Protein 7.3 g/dL (6.6-8.7) 06/09/23 15:10 Albumin 4.0 g/dL (3.5-5.2) 06/09/23 15:10 Globulin 3.3 g/dL (1.3-4.6) 06/09/23 15:10 Lipase 29 U/L (13-60) 06/09/23 15:10 HCG, Qual Negative (Negative) 06/09/23 16:09 Urine Color Straw (Yellow) 06/09/23 16:09 Urine Appearance Clear (CLEAR) 06/09/23 16:09 Urine pH 6.5 (5-7) 06/09/23 16:09 Ur Specific [place] 1.000 (1.005-1.030) L 06/09/23 16:09 Urine Protein Neg (Negative) 06/09/23 16:09 Urine Glucose (UA) Norm (Normal) 06/09/23 16:09 Urine Ketones Negative (Negative) 06/09/23 16:09 Urine Blood Neg (Negative) 06/09/23 16:09 Urine Nitrate Negative (Negative) 06/09/23 16:09 Urine Bilirubin Neg (Negative) 06/09/23 16:09 Urine Urobilinogen Norm mg/dL (Negative) 06/09/23 16:09 Ur Leukocyte Esterase Negative (Negative) 06/09/23 16:09 Procedures Performed Laparoscopic appendectomy Vitals Last Vital Signs Temp 98.2 F 06/09/23 14:24 Pulse 69 06/09/23 17:41 Resp 16 06/09/23 17:41 BP 160/104 06/09/23 17:41 Pulse Ox 100 06/09/23 17:41 O2 Del Method Room Air 06/09/23 17:41 Discharge Plan Discharge Patient Disposition: Home Condition: Stable Prescriptions: New hydrocodone-acetaminophen 10-325 mg tablet 1 tab PO Q6H PRN (Reason: pain) Qty: 20 0RF Colace 100 mg capsule 100 mg PO BID Qty: 14 0RF amoxicillin-pot clavulanate 875-125 mg tablet 1 tab PO BID Qty: 14 0RF Continued amlodipine 10 mg tablet 10 mg PO DAILY hydrochlorothiazide 25 mg tablet 12.5 mg PO DAILY Discharge Orders: Discharge Order (Routine); Ordered 06/09/23 Ordered By: Karsten Che Referrals: Sherin Armendariz FNP [Primary Care Provider] - 4-7 days Karsten Che DO [Physician] - 2 weeks Discharge Diet: Advance as tolerated Discharge Activity: Resume usual activity Activity Restrictions/Additional Instructions: Do not soak incisions underwater for 2 weeks. Shower daily. Discharge Attestations Time Spent in Discharge Care*: less than 30 min Quality Metrics Clinical Quality Measures [ No reported AMI, CVA or VTE this stay] Coding Level of Care Code Acute Code for [facility] Fwd Diagnoses Acute appendicitis K35.80
--- NOTE | 2023-06-09 19:04 | SUR.PHASEI ---
Pt discharged home with 2 hydro 10-325mg tabs, one colace 100mg tab and one augmentin 875/125mg tab
--- NOTE | 2023-06-09 19:18 | PM.PACU ---
PACU note Exam: awake and vital signs stable Disposition: discharged
--- NOTE | 2023-06-09 19:19 | ANE.PACU2 ---
Inpatient post-anesthesia follow up: Airway intact: Yes Vital signs: Temperature 97 F Pulse Rate 68 Respiratory Rate 18 Blood Pressure 105/62 Pulse Oximetry 98 Oxygen Delivery Me thod Room Air Oxygen Flow Rate 6 Fraction of Inspir ed Oxygen Hydration adequate: Yes Nausea and vomiting: No Pain level: 2 Mental status: Baseline
== END 2023-06-09 17:22 | disposition home or self-care (01) ==
LOC: ER 16:53 → OR 17:22
PROVIDERS: Emergency Provider Family Medicine; PCP Nurse Practitioner Family; Visit Provider Surgery
PROC: 0DTJ4ZZ Resection of Appendix, Percutaneous Endoscopic Approach (ICD-10-PCS; CPT 44970; principal; 2023-06-09 17:00)
DX: K35.80 Unspecified acute appendicitis (principal); I10 Essential (primary) hypertension; F41.9 Anxiety disorder, unspecified; E78.00 Pure hypercholesterolemia, unspecified
CPT/HCPCS: 44970; 36415; 74177; 80053; 81003; 81025; 83690; 85025; 88304; J0131; J1100; J1170; J1885; J2270; J2405; J2543; J2704; J3010; J3490; Q9967

== ENCOUNTER 2023-08-12 08:21 | Outpatient (CLI) | payer BC, SELFPAY ==
--- NOTE | 2023-08-12 08:25 | MM_ITS ---
WS: [id number] BILATERAL SCREENING DIGITAL TOMOSYNTHESIS MAMMOGRAM WITH CAD HISTORY: Z12.31 - Encounter for screening mammogram for malignant ... COMPARISON: 08/10/2022 and 06/21/2020 Bilateral CC and MLO views with tomosynthesis and synthetic mammography submitted. Computer aided det ection analyzed. Breast composition: The breasts are heterogeneously dense, which may obscure small masses. No suspici ous masses, microcalcifications or architectural distortion. Benign calcification RIGHT breast. IMPRESSION: MM/[place] [id number] BI-RADS: 2-Benign FOLLOW UP: 1 Year Follow-up
== END 2023-08-12 08:22 | disposition home or self-care (01) ==
LOC: RAD 08:21
PROVIDERS: PCP Nurse Practitioner Family; Visit Provider Nurse Practitioner Family
DX: Z12.31 Encounter for screening mammogram for malignant neoplasm of breast (principal)
CPT/HCPCS: 77063; 77067

== ENCOUNTER → 2024-07-10 13:26 | Outpatient (BNVA) | payer OTHER, SELFPAY | PROVIDERS: PCP Nurse Practitioner Family; Visit Provider Nurse Practitioner Women's Health | DX: Z01.419 Encounter for gynecological examination (general) (routine) without abnormal findings (principal) | CPT/HCPCS: 87624 ==

== ENCOUNTER 2024-08-13 08:30 | Outpatient (CLI) | payer OTHER, SELFPAY ==
--- NOTE | 2024-08-13 | MM_ITS ---
WS: [id number] BILATERAL SCREENING DIGITAL TOMOSYNTHESIS MAMMOGRAM WITH CAD HISTORY: ANNUAL SCREENING COMPARISON: 08/12/2023, 08/10/2022, 06/21/2020 Bilateral CC and MLO views with tomosynthesis and synthetic mammography submitted. Computer aided det ection analyzed. Breast composition: There are scattered areas of fibroglandular density. No suspicious masses, microc alcifications or architectural distortion. Benign calcifications in each breast. MM/MM scr BI tomosynthesis [id number] IMPRESSION: BI-RADS: 2 - Benign. FOLLOW UP: 1 Year Follow-up
== END 2024-08-13 08:31 | disposition home or self-care (01) ==
LOC: RAD 08:31
PROVIDERS: PCP Nurse Practitioner Family; Visit Provider Nurse Practitioner Family
DX: Z12.31 Encounter for screening mammogram for malignant neoplasm of breast (principal); R92.323 Mammographic fibroglandular density, bilateral breasts; R92.1 Mammographic calcification found on diagnostic imaging of breast
CPT/HCPCS: 77063; 77067

== ENCOUNTER → 2024-08-27 12:43 | Outpatient (BNVA) | payer OTHER, SELFPAY | PROVIDERS: PCP Nurse Practitioner Family; Visit Provider Nurse Practitioner Women's Health | DX: N95.1 Menopausal and female climacteric states (principal) | CPT/HCPCS: 82670 ==

== ENCOUNTER → 2024-10-19 08:59 | Outpatient (BNVA) | payer OTHER, SELFPAY | PROVIDERS: PCP Nurse Practitioner Family; Visit Provider Nurse Practitioner Women's Health | DX: E78.00 Pure hypercholesterolemia, unspecified (principal); Z13.1 Encounter for screening for diabetes mellitus; N95.1 Menopausal and female climacteric states; R53.83 Other fatigue | CPT/HCPCS: 80061; 82728; 83036 ==

== ENCOUNTER → 2024-10-27 13:13 | Outpatient (BNVA) | payer OTHER, SELFPAY | PROVIDERS: PCP Nurse Practitioner Family; Visit Provider Nurse Practitioner Women's Health | DX: N95.1 Menopausal and female climacteric states (principal) | CPT/HCPCS: 82670 ==

== ENCOUNTER → 2025-07-05 13:41 | Outpatient (BNVA) | payer OTHER, SELFPAY | PROVIDERS: PCP Nurse Practitioner Family; Visit Provider Nurse Practitioner Women's Health | DX: R68.82 Decreased libido (principal) | CPT/HCPCS: 84270; 84402; 84403 ==

== ENCOUNTER → 2025-07-12 11:16 | Outpatient (BNVA) | payer OTHER, SELFPAY | PROVIDERS: PCP Nurse Practitioner Family; Visit Provider Nurse Practitioner Women's Health | DX: R68.82 Decreased libido (principal) | CPT/HCPCS: 84270 ==

== ENCOUNTER → 2025-08-16 14:26 | Outpatient (BNVA) | payer OTHER, SELFPAY | PROVIDERS: PCP Nurse Practitioner Family; Visit Provider Nurse Practitioner Women's Health | DX: N95.1 Menopausal and female climacteric states (principal) | CPT/HCPCS: 82670 ==